=== PATIENT | female | born 1995 | race African-American/Black ===

== ENCOUNTER 2024-02-25 18:11 | Inpatient (IN) | payer OTHER ==
[~2024-02-25] VITALS: Ht 160 cm; Wt 109.0 kg
--- NOTE | 2024-02-25 19:12 | NUR ---
PT TO ROOM #13 WITH EVEN AND STEADY GAIT.
--- NOTE | 2024-02-25 19:13 | NUR ---
PT TO RM #13 WITH STEADY GAIT, NAD NOTED, NOTIFIED.
[2024-02-25 19:19] VITALS: BP 136/88
[2024-02-25] MEDS ORDERED: SODIUM CHLORIDE 0.9% 1,000 ML IV ONE ×3 (19:50→22:40)
[2024-02-25] MEDS ORDERED: METOCLOPRAMIDE HCL 10 MG/2 ML SDV IV ONE (19:55)
[2024-02-25] MEDS ORDERED: DiphenhydrAMINE HCL 50 MG/ML SDV IV ONE (19:55)
[2024-02-25] MEDS ORDERED: SODIUM CHLORIDE 0.45% 1,000 ML IV PRN (19:55)
[2024-02-25] MEDS ORDERED: MORPHINE SULFATE 4 MG/ML VIAL IV ONE ×2 (20:00→22:25)
[2024-02-25] MEDS ORDERED: ACETAMINOPHEN 500 MG TAB PO ONE (20:15)
--- NOTE | 2024-02-25 20:18 | NUR ---
PT MEDICATED PER MD ORDERS. PT UPDATED ON POC, AWITING FOR RESULTS AT THIS TIME. PT VOICES UNDERSTANDING WITH NO FURTHER QUESTIONS. PT CALL LIGHT WITHIN REACH, FAMILY AT BEDSIDE.
[2024-02-25] MEDS ORDERED: ALBUTEROL SULFATE 2.5 MG VIAL IN ONE (20:20)
[2024-02-25 20:30] LABS: BASO% 0.1 % (0-3); EOS% 0.2 % (0-8); HEMATOCRIT 33.8 % (37.0-47.0); HEMOGLOBIN 10.4 g/dl (12.0-16.0); IMMATURE GRANULOCYTES 0.3 % (0.0-5.0); LYMPH% 9.4 % (15-41); MEAN CELL VOLUME 73.2 fL CALC (80.0-100.0); MEAN CORPUSCULAR HGB 22.5 pG CALC (26.0-32.0); MEAN CORPUSCULAR HGB CONC 30.8 g/dL CAL (32.0-36.0); MONO% 10.6 % (2-13); NEUT# 12.72 thou/uL (2.00-7.15); NEUT% 79.4 % (42-76); RED BLOOD COUNT 4.62 mill/uL (4.20-5.60)
[2024-02-25 20:41] LABS: ALBUMIN 4.4 g/dL (3.2-5.0); ALKALINE PHOSPHATASE 44 u/l (38-126); AMYLASE 76 u/l (30-110); ANION GAP 16 (6-22 (CALC)); BILIRUBIN, TOTAL 1.3 mg/dL (0.02-1.3); BUN 10 mg/dL (7-17); BUN/CREATININE RATIO 11 (12-20 (CALC)); CARBON DIOXIDE 24 mmol/l (22-30); CHLORIDE 104 mmol/l (95-108); CREATININE 0.9 mg/dL (0.5-1.0); ESTIMATED GFR 88 ML/MIN (>=90 (CALC)); LIPASE 73 u/l (23-300); POTASSIUM 4.2 mmol/l (3.5-5.1); SGOT/AST 25 u/l (14-36); SODIUM 140 mmol/l (137-146); TOTAL PROTEIN 7.9 g/dL (6.3-8.2)
[2024-02-25 21:14] LABS: URINE BLOOD DIPSTICK Large (NEGATIVE); URINE GLUCOSE - DIPSTICK Negative (NEGATIVE); URINE KETONE >=160 mg/dL (NEGATIVE); URINE LEUK ESTERASE Negative (NEGATIVE); URINE PROTEIN - DIPSTICK >=300 mg/dL (NEG-TRACE); URINE SPECIFIC GRAVITY 1.025
[2024-02-25 21:15] LABS: URINE COLOR Bloody; URINE NITRITE - DIPSTICK Positive (Negative)
[2024-02-25 21:16] LABS: URINE BACTERIA FEW hpf; URINE EPITHELIAL CELLS MODERATE EPI/hpf (0-FEW); URINE MUCUS FEW hpf (NONE-FEW); URINE RBC >100 RBC/hpf (0-5)
--- NOTE | 2024-02-25 22:12 | NUR ---
PT C/O PAIN. MD NOTIFIED.
[2024-02-25 22:30] VITALS: BP 130/79
[2024-02-25] MEDS ORDERED: cefTRIAXone SODIUM 2 GM in SODIUM CHLORIDE 0.9% 100 ML IV ONE (22:40)
[2024-02-25 23:01] VITALS: BP 108/70
[2024-02-25] MEDS ORDERED: LACTATED RINGER'S 1,000 ML IV ONE ×2 (23:10)
--- NOTE | 2024-02-25 23:12 | NUR ---
MD VOICES LR FLUIDS WILL BE GIVEN ON THE FLOOR PER DR. COLON.
[2024-02-25] MEDS ORDERED: TAMSULOSIN HCL 0.4 MG CAP PO ONE (23:15)
[2024-02-25 23:30] VITALS: BP 115/66
[2024-02-25] MEDS ORDERED: ONDANSETRON HCl 4 MG/2 ML SDV IV PRN (23:30)
[2024-02-25] MEDS ORDERED: ACETAMINOPHEN 500 MG TAB PO PRN (23:30)
[2024-02-25] MEDS ORDERED: KETOROLAC TROMETHAMINE 15 MG/ML SDV IV PRN (23:30)
[2024-02-25] MEDS ORDERED: MORPHINE SULFATE PO PRN (23:30)
--- NOTE | 2024-02-25 23:47 | NUR ---
CALLED [facility] GAVE PT REPORT GIVEN TO MONSTER BARNETT. MONSTER NOTIFIED OF PT ELEVATED TEMP AT 102.3 F, PT MEDICATED FOR IT ALREADY IN ED. AWAITNG FOR RECHECK OF TEMPERATURE. MONSTER BARNETT VOICES UNDERSTANDING.
[2024-02-26] VITALS (9 sets, daily range): BP systolic 96–120; BP diastolic 49–68
--- NOTE | 2024-02-26 | NUR ---
PT TRANSPORTED TO [facility] VIA W/C.
--- NOTE | 2024-02-26 00:07 | NUR ---
NURSE NOTIFIED OF PATIENT PULSE.
--- NOTE | 2024-02-26 00:10 | NUR ---
PT ARRIVED FROM ER TO MED-SURG AT 0010 VIA WHEELCHEAIR ALONG WITH HER SISTER. REPORT RECEIVED FROM ER NURSE, MILLA SAEZ. PT STATES SHE CAME IN TO THE ER DUE TO RUQ PAIN AND FEVER. PT MEDICATED WITH TORADOL IN THE ER DUE FEVER, TEMPERATURE WAS CHECKED UPON ARRIVAL=99.3. PT IS ALERT AND ORIENTED. IVF INSUIG VIA RAC. RESPS ARE EVEN AND UNLABORED. ORIENTED TO ROOM, CALL LIGHT AND SURROUNDINGS. CALL LIGHT IN REACH AND SAFEY PRECAUTIONS IN PLACE.
--- NOTE | 2024-02-26 04:13 | NUR ---
PT RESTING IN BED IN SUPINE POSITION. RESPS ARE EVEN AND UNLABORED. NO DSITRES NOTED. IVF STILL ONGOING AT 150CC/HR. CALL LIGHT IN REACH
--- NOTE | 2024-02-26 07:45 | NUR ---
PT IS AOX4, RESPIRATIONS ARE EVEN AND UNLABORED ON ROOM AIR, LUNGS ARE CLEAR, BOWEL SOUNDS ARE ACTIVE, PEDAL PULSES ARE PALPABLE TO TOUCH, PT URINATED THIS MORNING, SEDIMENT IS IN THE SCREEN ON BACK OF [facility]. PT DENIES PAIN AT THIS TIME.
[2024-02-26] MEDS ORDERED: oxyCODONE HCL 5 MG/TAB PO PRN (09:45)
[2024-02-26] MEDS ORDERED: LACTATED RINGER'S 1,000 ML IV PRN (09:45)
[2024-02-26] MEDS ORDERED: HYDROmorphone HCL 2 MG/AMP IV PRN (10:00)
[2024-02-26] MEDS ORDERED: ALBUTEROL SULFATE 8 GM INH IN PRN (10:05)
[2024-02-26] MEDS ORDERED: MIDAZOLAM HCL 2 MG/2 ML VIAL IV ONE (10:16)
[2024-02-26] MEDS ORDERED: ACETAMINOPHEN 1,000 MG/100 ML VIAL IV ONE (10:16)
[2024-02-26] MEDS ORDERED: ONDANSETRON HCl 4 MG/2 ML SDV IV ONE (10:16)
[2024-02-26] MEDS ORDERED: PROPOFOL 200 MG/20 ML VIAL IV ONE (10:16)
[2024-02-26] MEDS ORDERED: LIDOCAINE HCL 2% 2ML SDV IV ONE (10:16)
[2024-02-26] MEDS ORDERED: CEFEPIME HYDROCHLORIDE 2 GM in SODIUM CHLORIDE 0.9% 100 ML IV SCH (11:00)
--- NOTE | 2024-02-26 12:15 | NUR ---
PT LAYING IN BED, RESPIRATIONS ARE EVEN AND UNLABORED AT THIS TIME.
--- NOTE | 2024-02-26 13:05 | NUR ---
PT LEFT THE UNIT VIA STREACHER TRANSPORT FOR SX.
[2024-02-26] MEDS ORDERED: FAMOTIDINE 10MG/ML 2ML SDV IV ONE (13:27)
[2024-02-26] MEDS ORDERED: ISOVUE-300 (Iopamidol) 100 ML SDV IV ONE (14:14)
[2024-02-26] MEDS ORDERED: LACTATED RINGER'S 1,000 ML IV ONE (15:22)
--- NOTE | 2024-02-26 15:49 | NUR ---
PT RETURNED TO UNIT FROM SX. PT IS SLEEPY BUT ORIENTED X3, RESPIRATIONS ARE EVEN AND UNLABORED, PT IS AFEBRILE, PT DENIES PAIN AT THIS TIME.
--- NOTE | 2024-02-26 16:00 | NUR ---
SCD'S ON, PROVIDED PT WITH ICE SHIPS AND SPPLE JUICE, IF TOLERATED WILL ADVANCE PER ORDERS.
--- NOTE | 2024-02-26 19:30 | NUR ---
PSTIENT ASSISTED TO BATHROOM. ALERT AND ORIENTED. DENIES ANY PAIN AT THIS TIME. FAMILY IN PATIENT'S ROOM. HAT EMPTIED WITH PINK-YELLOW URINE. SANITARY PADS AND CLEAN GOWN PROVODED TO PATIENT. IVF FLUIDS LR INFUSING AT THIS MOMENT. CALL LIGHT IN REACH AND SAFETY PRECAUTIONS IN PLACE
--- NOTE | 2024-02-26 20:20 | NUR ---
PT PLACED ON TELE NUMBER 11.
[2024-02-27] VITALS (9 sets, daily range): BP systolic 98–110; BP diastolic 52–67
--- NOTE | 2024-02-27 00:13 | NUR ---
PATIENT RESTINBG IN BED IN LEFT SIDED POSITION COMPLAINING THAT HER IV SITE WAS LEAKING. IV REMOVED AND CATHETER WAS INTAVT UPON REMOVAL. NEW IV STARTED IN HER RIGHT HAND (22) WITH GOOD BOOD RETURN. TELE MONITOR IN PLACE. DENIES ANY NEEDS. CALL LIGHT IN REACH
--- NOTE | 2024-02-27 04:00 | NUR ---
PT RESTING QUIETLY IN BED IN RIGHT-SIDED POSITION. RESPS ARE EVEN AND UNLABORED. IVF REMAINS INFUSING VIA RIGHT HAND. CALL LIGHT IN REACH AND SAFETY PRECAUTIONS IN PLACE
[2024-02-27 06:01] LABS: HEMATOCRIT 31.1 % (37.0-47.0); HEMOGLOBIN 9.8 g/dl (12.0-16.0); IMMATURE GRANULOCYTES 1.1 % (0.0-5.0); LYMPH% 4.5 % (15-41); MEAN CORPUSCULAR HGB 22.7 pG CALC (26.0-32.0); MEAN CORPUSCULAR HGB CONC 31.5 g/dL CAL (32.0-36.0); MONO% 3.1 % (2-13); NEUT# 19.12 thou/uL (2.00-7.15); NEUT% 91.3 % (42-76); RED BLOOD COUNT 4.32 mill/uL (4.20-5.60); RED CELL DISTRI WIDTH 17.2 % (11.5-15.5)
[2024-02-27 06:07] LABS: ALBUMIN 3.6 g/dL (3.2-5.0); BILIRUBIN, TOTAL 0.6 mg/dL (0.02-1.3); CREATININE 0.7 mg/dL (0.5-1.0); MAGNESIUM 2.1 mg/dL (1.6-2.3); POTASSIUM 4.1 mmol/l (3.5-5.1)
--- NOTE | 2024-02-27 07:50 | NUR ---
PT IS AOX4, RESPIRATIONS ARE EVEN AND UNLABORED, LUNGS ARE CLEAR, BOWEL SOUNDS ARE ACTIVE, PEDAL PULSES ARE PALPABLE TO TOUCH, PT DENIES PAIN AT THIS TIME.
[2024-02-27] MEDS ORDERED: TAMSULOSIN HCL 0.4 MG CAP PO SCH (08:00)
[2024-02-27] MEDS ORDERED: LACTATED RINGER'S 1,000 ML IV PRN (08:55)
--- NOTE | 2024-02-27 20:45 | NUR ---
PT RESTING IN BED NO DISTRESS NOTED ON ASSESSMENT. PT REPORTS NO PAIN AT THIS TIME. IV FLUIDS INFUSION ONGOING WORKING PROPERLY. CALL LIGHT WITHIN REACH. PLAN OF CARE ONGOING.
[2024-02-28] VITALS (9 sets, daily range): BP systolic 101–130; BP diastolic 55–92
--- NOTE | 2024-02-28 00:26 | NUR ---
PT SLEEPING NO DISTRESS NOTED IV FLUIDS GOING. CALL LIGHT WITHIN REACH. PLAN OF CARE ONGOING.
--- NOTE | 2024-02-28 04:05 | NUR ---
PT SLEEPING NO DISTRESS NOTED BREATHING EVENLY. CALL LIGHT WITHIN REACH. PLAN OF CARE ONGOING.
[2024-02-28 05:57] LABS: BASO% 0.1 % (0-3); EOS% 0.1 % (0-8); HEMATOCRIT 28.2 % (37.0-47.0); HEMOGLOBIN 8.9 g/dl (12.0-16.0); IMMATURE GRANULOCYTES 0.5 % (0.0-5.0); LYMPH% 12.4 % (15-41); MEAN CELL VOLUME 71.4 fL CALC (80.0-100.0); MEAN CORPUSCULAR HGB 22.5 pG CALC (26.0-32.0); MEAN CORPUSCULAR HGB CONC 31.6 g/dL CAL (32.0-36.0); MONO% 5.7 % (2-13); NEUT# 14.15 thou/uL (2.00-7.15); NEUT% 81.2 % (42-76); RED BLOOD COUNT 3.95 mill/uL (4.20-5.60); RED CELL DISTRI WIDTH 17.1 % (11.5-15.5)
[2024-02-28 06:16] LABS: ALBUMIN 2.9 g/dL (3.2-5.0); BILIRUBIN, TOTAL 0.5 mg/dL (0.02-1.3); CREATININE 0.7 mg/dL (0.5-1.0); MAGNESIUM 1.9 mg/dL (1.6-2.3); POTASSIUM 3.5 mmol/l (3.5-5.1); TOTAL PROTEIN 5.8 g/dL (6.3-8.2)
--- NOTE | 2024-02-28 07:00 | NUR ---
SHIFT CHANGE REPORT, PT AWAKE ALERT AND ORIENTED RESTING IN BED, C/O MILD ABD PAIN BUT STATES SHE DOES NOT WANT ANY ANALGESIC AT THIS TIME, IVF INFUSING, TELE MOITOR IN PLACE, SCD IN PLACE, CALL EDGAR IN REACH AND BED LOCKED IN LOWEST POSITION.
[2024-02-28] MEDS ORDERED: BENZOCAINE-MENTHOL (MOUTH-THRO 1 LOZ LOZ PO PRN (11:20)
[2024-02-28] MEDS ORDERED: guaiFENesin 200 MG/10 ML UDC PO PRN (11:20)
--- NOTE | 2024-02-28 12:00 | NUR ---
SET UP FOR SHOWER REQUESTED.
--- NOTE | 2024-02-28 16:00 | NUR ---
RELAXING IN BED WITH VISITIOS IN ROOM, ALL NEEDS ADDRESSED.
--- NOTE | 2024-02-28 20:00 | NUR ---
PT RESTING NO DISTRESS NOTED. PT STATED FEELING BETTER TODAY. NO PAIN REPORTED AT THIS TIME. IV FLUSHED WORKING PROPERLY WITH IV FLUIDS ONGOING. PT STATED NO ISSUES WITH URINATION. CALL LIGHT WITHIN REACH. PLAN OF CARE ONGOING.
[2024-02-28] MEDS ORDERED: cefTRIAXone SODIUM 2 GM in SODIUM CHLORIDE 0.9% 100 ML IV SCH (21:00)
--- NOTE | 2024-02-28 23:51 | NUR ---
PT SLEEPING EASILY AROUSABLE NO DISTRESS NOTED. PT REPORTS NO PAIN AT THIS TIME. CALL LIGHT WITHIN REACH. PLAN OF CARE ONGOING.
[2024-02-29] VITALS: BP 122/79
[2024-02-29 03:47] VITALS: BP 121/78
[2024-02-29 04:00] VITALS: BP 121/78
[2024-02-29 05:19] LABS: BASO% 0.2 % (0-3); EOS% 0.7 % (0-8); HEMATOCRIT 26.7 % (37.0-47.0); HEMOGLOBIN 8.7 g/dl (12.0-16.0); IMMATURE GRANULOCYTES 1.2 % (0.0-5.0); MEAN CELL VOLUME 69.9 fL CALC (80.0-100.0); MEAN CORPUSCULAR HGB 22.8 pG CALC (26.0-32.0); MEAN CORPUSCULAR HGB CONC 32.6 g/dL CAL (32.0-36.0); MONO% 10.7 % (2-13); NEUT# 7.1 thou/uL (2.00-7.15); NEUT% 61.5 % (42-76); RED BLOOD COUNT 3.82 mill/uL (4.20-5.60); RED CELL DISTRI WIDTH 16.3 % (11.5-15.5)
[2024-02-29 05:27] LABS: ALBUMIN 2.7 g/dL (3.2-5.0); BILIRUBIN, TOTAL 0.4 mg/dL (0.02-1.3); CREATININE 0.7 mg/dL (0.5-1.0); MAGNESIUM 1.6 mg/dL (1.6-2.3); POTASSIUM 3.2 mmol/l (3.5-5.1); TOTAL PROTEIN 5.5 g/dL (6.3-8.2)
[2024-02-29 06:01] LABS: LYMPH% 25.7 % (15-41)
[2024-02-29] MEDS ORDERED: POTASSIUM CHLORIDE 20 MEQ/TAB PO SCH (08:00)
--- NOTE | 2024-02-29 08:00 | NUR ---
PT WAS SLEEPING IN BED, EASILY AROUSABLE AND AWAKE NOW. NO COMPLAINTS AT THIS TIME. CALL LIGHT IN REACH.
[2024-02-29 08:04] VITALS: BP 150/84
[2024-02-29 10:33] VITALS: BP 110/64
[2024-02-29 10:58] VITALS: BP 110/64
[2024-02-29] MEDS ORDERED: LEVOFLOXACIN500MG PO (11:36)
--- NOTE | 2024-02-29 12:14 | NUR ---
PT IS SITTING ON THE EDGE OF THE BED, EATTING LUNCH. CALL EDGAR IN REACH.
--- NOTE | 2024-02-29 12:37 | NUR ---
IV AND TELEMETRY REMOVED PER PT DISCHARGE. PT IS CURRENTLY WAITING IN HER ROOM FOR HER RIDE HOME. PT DISCHARGE IN FOREMATION GIVEN AND EXPLAINED, PT STATED NO QUESTIONS AT THIS TIME.
--- NOTE | 2024-02-29 12:48 | NUR ---
Discharge instructions given. Patient verbalizes understanding of same. Discharged in stable condition via Wheelchair to Home with staff. All belongings sent with pt.
--- NOTE | 2024-03-01 11:45 | NUR ---
Discharge follow up call completed 02/28/23. Patient states she is doing well and had no issues since discharge. Patient is taking medication as directed. She will contact her PCP to schedule a follow up appointment. No needs or concerns verbalized at this time.
== END 2024-02-29 12:48 | disposition home or self-care (01) | DRG 872 ==
LOC: ED 18:11 → ED-I 22:55 → ED 23:07 → MS2 23:07
PROVIDERS: Emergency Medicine; Nurse Practitioner Family; ADMIT Internal Medicine; ATTEND Internal Medicine
PROC: 0TC68ZZ Extirpation of Matter from Right Ureter, Via Natural or Artificial Opening Endoscopic (ICD-10-PCS; principal; 2024-02-26)
PROC: BT1DZZZ Fluoroscopy of Right Kidney, Ureter and Bladder (ICD-10-PCS; 2024-02-26)
DX: A41.9 Sepsis, unspecified organism (principal); N13.6 Pyonephrosis; J45.909 Unspecified asthma, uncomplicated; B96.1 Klebsiella pneumoniae [K. pneumoniae] as the cause of diseases classified elsewhere
CPT/HCPCS: C1769; J0131; J0692; J0696; J1100; J1200; J1885; J2405; J2765; Q9966; Q9967